=== PATIENT | male | born 1995 | race Caucasian/White ===

== ENCOUNTER 2018-05-18 15:41 | Emergency (ER) | payer SELFPAY ==
[~2018-05-18] VITALS: Ht 170.2 cm; Wt 65.8 kg
[2018-05-18 15:57] VITALS: Ht 170.2 cm; Wt 65.8 kg
[2018-05-18 17:44] LABS: BASOPHIL % 0.6 % (0-2); PLATELET COUNT 250 x10^3mcL (130-400)
[2018-05-18 18:29] LABS: ALBUMIN 4.4 g/dL (3.4-5.0); ALKALINE PHOSPHATASE 89 U/L (46-116); ALT/SGPT 52 U/L (16-63); AST/SGOT 22 U/L (15-37); BILIRUBIN TOTAL 0.2 mg/dL (0.20-1.00); CARBON DIOXIDE 31.7 mmol/L (21-32); CREATININE SERUM 0.9 mg/dL (0.7-1.3); FREE T4 0.91 ng/dL (0.76-1.46); GFR1 > 60 mL/min; GLUCOSE SERUM 98 mg/dL (74-106); TOTAL PROTEIN, SERUM 8.1 g/dL (6.4-8.2)
[2018-05-18 18:47] LABS: CHLORIDE SERUM 103 mmol/L (98-107); POTASSIUM SERUM 3.7 mmol/L (3.5-5.1); SODIUM SERUM 141 mmol/L (136-145)
[2018-05-18 19:59] VITALS: BP 116/76
== END 2018-05-18 19:59 | disposition left against medical advice (07) ==
LOC: ED 15:41
PROVIDERS: Emergency Medicine
DX: M79.10 Myalgia, unspecified site (principal); F32.9 Major depressive disorder, single episode, unspecified; R51 Headache; R06.02 Shortness of breath
CPT/HCPCS: 36415; 84439